=== PATIENT | female | born 1940 | race African-American/Black ===

== ENCOUNTER 2024-09-19 22:20 | Emergency (ER) | payer MEDICAID, MEDICARE, OTHER ==
[~2024-09-19] VITALS: Ht 167.6 cm; Wt 55.0 kg
[2024-09-19] MEDS ORDERED: AMLO5TAB88 MT (22:37)
[2024-09-19 22:42] VITALS: O2SAT 100
[2024-09-19 23:26] VITALS: BP 189/74; PULSE 91; RESP 16; TEMP 37.1; O2SAT 100
[2024-09-19] MEDS: AMLODIPINE 5MG TABLET PO NR (23:28)
== END 2024-09-19 23:38 ==
LOC: ER 22:20
DX: I10 Essential (primary) hypertension (principal); Z02.89 Encounter for other administrative examinations
CPT/HCPCS: 99283